=== PATIENT | male | born 1985 | race American Indian/Alaskan Native ===

== ENCOUNTER 2021-11-21 13:38 | Emergency (ER) | payer SELFPAY ==
[2021-11-21] MEDS ORDERED: methylPREDNISolone Sod Succinate 125 MG/2 ML INJ IM ONE (16:34)
[2021-11-21] MEDS ORDERED: KETOROLAC 30 MG/1 ML INJ IM ONE (16:35)
--- NOTE | 2021-11-21 16:40 | Emergency Department Report ---
ED General Adult HPI - General Chief complaint: Skin/Abscess/Foreign Body Stated complaint: SPIDER BITES, INTERNAL HEMOROID Source: patient Mode of arrival: Ambulatory Limitations: No Limitations - History of Present Illness Initial comments: Patient is a 36-year-old -[place] male with a history of HIV who presents to the ED with complaint of acute onset persistent diffuse itchy erythematous maculopapular rashes and penile pain from being bitten by spiders at a house 24 hours ago. Patient states that the itching has also worsened in the last 6 hours. Patient also complains of rectal pain from chronic recurrent external and internal hemorrhoids. Patient denies dizziness, syncope, abdominal pain, fever, chills, nausea and vomiting, swollen lips or tongue, diarrhea, dysuria, penile discharge, testicular pain or low back pain. MD Complaint: Diffuse itchy erythematous -: Sudden, hour(s) (12) Location: face, mouth, neck, back, pelvis, genitals, upper extremity, lower extremity Radiation: non-radiation Severity scale (0 -10): 4 Quality: burning, dull Consistency: intermittent Improves with: none Worsens with: none Associated Symptoms: denies other symptoms, rash. denies: cough, diaphoresis, headaches, malaise, nausea/vomiting, shortness of breath, syncope, weakness Treatments Prior to Arrival: none - Related Data Previous Rx's Medication Instructions Recorded Last Taken Type Dibucaine 1% [Nupercainal] 1 applicatio [place] TID #1 tube 11/21/21 Unknown Rx Doxycycline Hyclate 100 mg PO Q12H #28 cap 11/21/21 Unknown Rx Famotidine [Pepcid] 20 mg PO BID #60 tablet 11/21/21 Unknown Rx Hydrocortisone [Anusol-Hc 2.5% TOP 1 applic RC BID #1 tube 11/21/21 Unknown Rx CREAM] Ibuprofen [Motrin] 800 mg PO Q8HR PRN #30 tablet 11/21/21 Unknown Rx diphenhydrAMINE [Benadryl CAP] 50 mg PO Q8HR PRN #30 capsule 11/21/21 Unknown Rx methylPREDNISolone [Medrol 4MG 4 mg PO DAILY #21 tab 11/21/21 Unknown Rx DOSEPAK (21 tabs)] Allergies Allergy/AdvReac Type Severity Reaction Status Date / Time shellfish derived Allergy Anaphylaxis Verified 11/21/21 14:01 cranberries Allergy Rash Uncoded 11/21/21 14:01 ED Review of Systems ROS: Stated complaint: SPIDER BITES, INTERNAL HEMOROID Other details as noted in HPI Constitutional: denies: chills, fever Eyes: denies: eye pain, eye discharge, vision change ENT: denies: ear pain, throat pain Respiratory: denies: cough, shortness of breath, wheezing Cardiovascular: denies: chest pain, palpitations Endocrine: no symptoms reported Gastrointestinal: denies: abdominal pain, nausea, diarrhea Genitourinary: frequency, hematuria, discharge. denies: urgency, dysuria Musculoskeletal: denies: back pain, joint swelling, arthralgia Skin: rash (Mild erythematous maculopapular urticarial rashes diffusely), change in color, pruritus. denies: lesions Neurological: denies: headache, weakness, paresthesias Psychiatric: denies: anxiety, depression Hematological/Lymphatic: denies: easy bleeding, easy bruising ED Past Medical Hx - Past Medical History Previous Medical History?: No Hx HIV: Yes - Surgical History Past Surgical History?: No - Medications Home Medications: Home Medications Medication Instructions Recorded Confirmed Last Taken Type Dibucaine 1% [Nupercainal] 1 applicatio [place] TID #1 tube 11/21/21 Unknown Rx Doxycycline Hyclate 100 mg PO Q12H #28 cap 11/21/21 Unknown Rx Famotidine [Pepcid] 20 mg PO BID #60 tablet 11/21/21 Unknown Rx Hydrocortisone [Anusol-Hc 2.5% TOP 1 applic RC BID #1 tube 11/21/21 Unknown Rx CREAM] Ibuprofen [Motrin] 800 mg PO Q8HR PRN #30 tablet 11/21/21 Unknown Rx diphenhydrAMINE [Benadryl CAP] 50 mg PO Q8HR PRN #30 capsule 11/21/21 Unknown Rx methylPREDNISolone [Medrol 4MG 4 mg PO DAILY #21 tab 11/21/21 Unknown Rx DOSEPAK (21 tabs)] ED Physical Exam - General Limitations: No Limitations General appearance: alert, in no apparent distress - Head Head exam: Present: atraumatic, normocephalic, normal inspection - Eye Eye exam: Present: normal appearance, PERRL, EOMI Pupils: Present: normal accommodation - ENT ENT exam: Present: normal exam, normal orophraynx, mucous membranes moist, TM's normal bilaterally, normal external ear exam - Neck Neck exam: Present: normal inspection, full ROM. Absent: tenderness - Respiratory Respiratory exam: Present: normal lung sounds bilaterally. Absent: respiratory distress, wheezes, rales, rhonchi, chest wall tenderness, accessory muscle use, decreased breath sounds, prolonged expiratory - Cardiovascular Cardiovascular Exam: Present: regular rate. Absent: systolic murmur, diastolic murmur, rubs, gallop - GI/Abdominal GI/Abdominal exam: Present: soft, normal bowel sounds. Absent: tenderness, guarding, rebound, hypoactive bowel sounds, organomegaly, hernia - Rectal Rectal exam: Present: deferred, fecal impaction - Extremities Exam Extremities exam: Present: normal inspection, full ROM, normal capillary refill. Absent: tenderness - Back Exam Back exam: Present: normal inspection, full ROM. Absent: tenderness, CVA tenderness (R), CVA tenderness (L), muscle spasm - Neurological Exam Neurological exam: Present: alert, oriented X3, CN II-XII intact, normal gait, reflexes normal - Psychiatric Psychiatric exam: Present: normal affect, normal mood - Skin Skin exam: Present: warm, dry, intact, normal color. Absent: rash ED Course Vital Signs 11/21/21 14:03 Temperature 100.2 F H Pulse Rate 114 H Respiratory 20 Rate Blood Pressure 145/93 [Right] O2 Sat by Pulse 96 Oximetry ED Medical Decision Making - Medical Decision Making This is a 36-year-old -[place] male with a history of HIV who presents to the ED with complaint of acute onset persistent diffuse itchy erythematous maculopapular rashes and penile pain from being bitten by spiders at a house 24 hours ago. Patient states that the itching has also worsened in the last 6 hours. Patient also complains of rectal pain from chronic recurrent external and internal hemorrhoids. Patient also complains of pain in pain and dysuria. In the ED, patient is alert and oriented x3 and is not in distress. Patient was treated for pain in the ED. Patient also received Solu-Medrol and Pepcid as well as empirically treated for suspected gonorrhea with Rocephin. On reevaluation, patient pain is well controlled medication. Patient was discharged home on medications and advised to follow-up with his primary care physician in 7 to 10 days for reevaluation or return to the ED immediately if symptoms get worse. - Differential Diagnosis allergic reaction; dermatitis; STD; UTI; urethritis; urticaria; cellulitis Critical care attestation.: If time is entered above; I have spent that time in minutes in the direct care of this critically ill patient, excluding procedure time. ED Disposition Clinical Impression: Acute urticaria, Dysuria, Allergy to insect bites and stings, External hemorrhoids Acute allergic reaction Qualifiers: Encounter type: initial encounter Qualified Code(s): T78.40XA - Allergy, unspecified, initial encounter Cellulitis Qualifiers: Site of cellulitis: other site Qualified Code(s): L03.818 - Cellulitis of other sites Disposition: 01 HOME / SELF CARE / HOMELESS Is pt being admited?: No Does the pt Need Aspirin: No Condition: Stable Instructions: Allergies, Adult, [id number], Rash, Adult, [id number], Hives, [id number], Hemorrhoids, [id number] Additional Instructions: Take medication as advised, drink plenty of fluids and follow-up with your primary care physician in 7 to 10 days for reevaluation. Return to the ED im mediately if symptoms get worse. Prescriptions: Hydrocortisone [Anusol-Hc 2.5% TOP CREAM] 1 applic RC BID #1 tube diphenhydrAMINE [Benadryl CAP] 50 mg PO Q8HR PRN #30 capsule PRN Reason: Itching Doxycycline Hyclate 100 mg PO Q12H #28 cap methylPREDNISolone [Medrol 4MG DOSEPAK (21 tabs)] 4 mg PO DAILY #21 tab Ibuprofen [Motrin] 800 mg PO Q8HR PRN #30 tablet PRN Reason: Pain , Severe (7-10) Dibucaine 1% [Nupercainal] 1 applicatio [place] TID #1 tube Famotidine [Pepcid] 20 mg PO BID #60 tablet Referrals: [facility] [Provider Group] - 3-5 Days Time of Disposition: 19:49 Print Language: GERMAN
[2021-11-21] MEDS ORDERED: ACETAMINOPHEN 500 MG TAB PO ONE (16:52)
[2021-11-21 17:29] LABS: Mucus,Urine 3+ /HPF
[2021-11-21 17:33] LABS: Bilirubin,Urine NEG (Negative); Blood,Urine MOD (Negative); Color,Urine Amber (Yellow)
[2021-11-21 17:34] LABS: Protein,Urine >500 mg/dL (Negative)
[2021-11-21] MEDS ORDERED: LIDOCAINE-MPF (1%) 10 MG/1 ML VIAL 5 ML INFILTRATI ONE (19:37)
[2021-11-21 20:26] VITALS: BP 130/77
== END 2021-11-21 20:24 | disposition home or self-care (01) ==
LOC: EDBD → ED 13:38
DX: T63.441A Toxic effect of venom of bees, accidental (unintentional), initial encounter (principal); R30.0 Dysuria; L20.9 Atopic dermatitis, unspecified; K64.4 Residual hemorrhoidal skin tags; L03.90 Cellulitis, unspecified; Z21 Asymptomatic human immunodeficiency virus [HIV] infection status; Z91.013 Allergy to seafood; Z91.018 Allergy to other foods; Y92.89 Other specified places as the place of occurrence of the external cause
CPT/HCPCS: 81001; 96372; 99283; J0696; J1885; J2930; J3490